=== PATIENT | male | born 1965 | race Caucasian/White ===

== ENCOUNTER 2017-06-09 20:49 | Emergency (ER) | payer OTHER ==
--- NOTE | 2017-06-09 20:58 | EDPHY ---
H & P Stated Complaint: started 0400 yesterday left flank that radiated to LLQ Time Seen by Provider: 06/09/17 20:56 HPI/ROS: CHIEF COMPLAINT: Left abdominal pain HISTORY OF PRESENT ILLNESS: 51-year-old male with prior history of nephrolithiasis, last episode 2 years ago, spontaneous passage, complaining of left lower quadrant pain since noon today. Feels different than prior episodes nephrolithiasis. No testicular pain. He was seen at his PCP 2 days ago for complaints of dark urine in diagnosed with cystitis at that time, currently on antibiotic PRIMARY CARE PROVIDER:Dr. Yousuf Dhaliwal REVIEW OF SYSTEMS: A ten point review of systems was performed and is negative with the exception of the items mentioned in the HPI PAST MEDICAL & SURGICAL HISTORY: prior nephrolithiasis history of spontaneous passage SOCIAL HISTORY:Nonsmoker PHYSICAL EXAM (Prior to examination, patient consented to physical exam, hands were washed and my usual and customary physical exam procedures followed) 1) GENERAL: Well-developed, well-nourished, alert and oriented. Appears to be in no acute distress. 2) HEAD: Normocephalic, atraumatic 3) HEENT: Pupils equal, round, reactive to light bilaterally. Sclera anicteric. Nasopharynx, oropharynx, clear, no lesions. Ears bilaterally with normal tympanic membranes. 4) NECK: Full range of motion, no meningeal signs. 5) LUNGS: Clear auscultation bilaterally, no wheezes, no rhonchi, no retractions. 6) HEART: Regular rate and rhythm, no murmur, no heave, no gallop. 7) ABDOMEN: No guarding, no rebound, no focal tenderness, negative McBurney's, negative Rangel's, negative Rovsing's, negative peritoneal sign, 8) MUSCULOSKELETAL: Moving all extremities, no focal areas of tenderness, no obvious trauma. No peripheral edema or discoloration. 9) BACK: No CVA tenderness, no midline vertebral tenderness, no fluctuance, no step-off, no obvious trauma, no visual or palpable abnormality. 10) SKIN: No rash, no petechiae. 11) Psychiatric: Patient is oriented X 3, there is no agitation. DIFFERENTIAL DIAGNOSIS: In no particular order including but limited to nephrolithiasis, pyelonephritis, obstructive uropathy, diverticulitis, diverticular abscess. - Personal History Current Tetanus/Diphtheria Vaccine: Yes Current Tetanus Diphtheria and Acellular Pertussis (TDAP): Yes - Medical/Surgical History Hx Asthma: No Hx Chronic Respiratory Disease: No Hx Diabetes: No Hx Cardiac Disease: No Hx Renal Disease: No Hx Cirrhosis: No Hx Alcoholism: No Hx HIV/AIDS: No Hx Splenectomy or Spleen Trauma: No Other PMH: right knee surgery, hernia repair, wisdom teeth, vasectomy - Social History Smoking Status: Never smoked Constitutional: Initial Vital Signs Temperature (C) 36.8 C 06/09/17 20:50 Heart Rate 87 06/09/17 20:50 Respiratory Rate 18 06/09/17 20:50 Blood Pressure 133/79 H 06/09/17 20:50 O2 Sat (%) 96 06/09/17 20:50 O2 Delivery Mode Room Air Allergies/Adverse Reactions: No Known Allergies Allergy (Verified 06/09/17 20:56) Home Medications: Medication Instructions Recorded Bactrim DS 06/09/17 Hydrocodone/APAP 5/325 [[place] 1 tab PO Q6 PRN #15 tab 06/09/17 5/325 (RX)] Hydrocodone/Acetaminophen 06/09/17 Ondansetron 06/09/17 Tamsulosin HCl 06/09/17 Tamsulosin HCl [Flomax] 0.4 mg PO DAILY #7 cap 06/09/17 Medical Decision Making - Diagnostics Imaging Results: Imaging Impressions Abdomen/Pelvis CT 06/09/17 21:05 Impression: 1. Moderate obstructive uropathy with extensive perinephric and periureteric stranding suggesting forniceal rupture secondary to a 4 mm stone at the ureterovesical junction. 2. Bilateral nephrolithiasis. 3. Probable tiny bladder stones. 4. Additional findings, as above. Findings discussed with Crow Martino PA-C on June 09, 2017 at 2140 hours. Attention: This CT examination is specifically designed to evaluate patients who are clinically suspected of having acute obstructive uropathy. This examination does not use radiographic contrast, and as such, provides only a limited evaluation of the abdomen, pelvis, and retroperitoneum. If there is further clinical suspicion for pathological conditions other than obstructive uropathy, a complete CT evaluation of the abdomen and pelvis utilizing intravenous and oral contrast should be considered. Images reviewed myself ED Course/Re-evaluation: 9:05 p.m.: Patient has prior history of nephrolithiasis however describes a current pain which is different than his usual pain. In addition he is focally tender to palpation left lower quadrant. Discussed multiple possible etiologies including, but not limited to, diverticulitis, diverticular abscess, nephrolithiasis. I therefore recommended CT imaging. Indications risks benefits discussed with patient and he verbalizes consent. 10:15 p.m.: Re-evaluation. His pain is currently controlled after 1 mg of Dilaudid. He did not receive Toradol in the ER. Had not received urinalysis from the patient yet. Will provide further IV hydration. He is noted to have 4 mm stone at the UVJ with creatinine of 2.2 which is new compared to level 1.1 December of 2016. Plan will be consultation with Urology after urinalysis. He does informed me that 2 days ago he was diagnosed with cystitis by his PCP and started on Bactrim. 11:40 p.m.: Patient was able to provide urinalysis which is positive for hematuria only. Will plan on consultation with Urology. His pain is controlled. 11:55 p.m.: Consultation with on-call Urology, TANVIR Kent, discussed clinical findings including the elevated creatinine. Recommended follow up in office this week (today is Saturday). Discussed this with the patient and he is comfortable with this plan. His pain is controlled. All questions and concerns addressed by myself. - Data Points Laboratory Results: Laboratory Results 06/09/17 21:12 06/09/17 21:12 06/09/17 06/09/17 06/09/17 21:12 21:12 20:45 WBC 14.76 10^3/uL H 10^3/uL (3.80-9.50) RBC 5.16 10^6/uL 10^6/uL (4.40-6.38) Hgb 15.7 g/dL g/dL (13.7-17.5) Hct 45.4 % % (40.0-51.0) MCV 88.0 fL fL (81.5-99.8) MCH 30.4 pg pg (27.9-34.1) MCHC 34.6 g/dL g/dL (32.4-36.7) RDW 12.9 % % (11.5-15.2) Plt Count 389 10^3/uL 10^3/uL (150-400) MPV 8.7 fL fL (8.7-11.7) Neut % (Auto) 86.3 % H % (39.3-74.2) Lymph % (Auto) 7.2 % L % (15.0-45.0) [place] % (Auto) 5.8 % % (4.5-13.0) Eos % (Auto) 0.1 % L % (0.6-7.6) Baso % (Auto) 0.1 % L % (0.3-1.7) Nucleat RBC Rel Count 0.0 % % (0.0-0.2) Absolute Neuts (auto) 12.73 10^3/uL H 10^3/uL (1.70-6.50) Absolute Lymphs (auto) 1.07 10^3/uL 10^3/uL (1.00-3.00) Absolute Monos (auto) 0.86 10^3/uL H 10^3/uL (0.30-0.80) Absolute Eos (auto) 0.01 10^3/uL L 10^3/uL (0.03-0.40) Absolute Basos (auto) 0.02 10^3/uL 10^3/uL (0.02-0.10) Absolute Nucleated RBC 0.00 10^3/uL 10^3/uL (0-0.01) Immature Gran % 0.5 % % (0.0-1.1) Immature Gran # 0.07 10^3/uL 10^3/uL (0.00-0.10) Sodium 136 mEq/L mEq/L (135-145) Potassium 4.8 mEq/L mEq/L (3.5-5.2) Chloride 96 mEq/L L mEq/L (97-110) Carbon Dioxide 26 mEq/l mEq/l (22-31) Anion Gap 14 mEq/L mEq/L (8-16) BUN 21 mg/dL mg/dL (7-23) Creatinine 2.2 mg/dL H mg/dL (0.7-1.3) Estimated GFR 31 Glucose 114 mg/dL H mg/dL (70-100) Calcium 9.3 mg/dL mg/dL (8.5-10.4) Total Bilirubin 1.3 mg/dL mg/dL (0.1-1.4) Conjugated Bilirubin 0.3 mg/dL mg/dL (0.0-0.5) Unconjugated Bilirubin 1.0 mg/dL mg/dL (0.0-1.1) AST 29 IU/L IU/L (17-59) ALT 28 IU/L IU/L (21-72) Alkaline Phosphatase 63 IU/L IU/L (38-126) Total Protein 7.9 g/dL g/dL (6.3-8.2) Albumin 4.5 g/dL g/dL (3.5-5.0) Lipase 27 IU/L IU/L (23-300) Urine Color YELLOW Urine Appearance HAZY Urine pH 5.0 (5.0-7.5) Ur Specific [place] 1.028 (1.002-1.030) Urine Protein NEGATIVE (NEGATIVE) Urine Ketones TRACE H (NEGATIVE) Urine Blood 1+ H (NEGATIVE) Urine Nitrate NEGATIVE (NEGATIVE) Urine Bilirubin NEGATIVE (NEGATIVE) Urine Urobilinogen NEGATIVE EU EU (0.2-1.0) Ur Leukocyte Esterase NEGATIVE (NEGATIVE) Urine RBC 1-3 /hpf /hpf (0-3) Urine WBC 1-3 /hpf /hpf (0-3) Ur Epithelial Cells TRACE /lpf /lpf (NONE-1+) Uric Acid Crystals PRESENT /hpf /hpf (NONE-1+) Urine Mucus TRACE /lpf /lpf (NONE-1+) Urine Glucose NEGATIVE (NEGATIVE) Medications Given: Discontinued Medications Hydromorphone HCl (Dilaudid) 1 mg IVP EDNOW ONE Stop: 06/09/17 21:26 Last Admin: 06/09/17 21:28 Dose: 1 mg Hydromorphone HCl (Dilaudid) 1 mg IVP EDNOW ONE Stop: 06/09/17 23:29 Last Admin: 06/09/17 23:32 Dose: 1 mg Sodium Chloride (Ns) 1,000 mls @ 0 mls/hr IV ONCE ONE PRN Reason: Wide Open Stop: 06/09/17 21:16 Last Admin: 06/09/17 21:28 Dose: 1,000 mls Sodium Chloride (Ns) 1,000 mls @ 0 mls/hr IV ONCE ONE PRN Reason: Wide Open Stop: 06/09/17 22:15 Last Admin: 06/09/17 22:22 Dose: 1,000 mls Ondansetron HCl (Zofran) 4 mg IVP EDNOW ONE Stop: 06/09/17 21:26 Last Admin: 06/09/17 21:28 Dose: 4 mg Tamsulosin HCl (Flomax) 0.4 mg PO EDNOW ONE Stop: 06/09/17 21:55 Last Admin: 06/09/17 21:55 Dose: 0.4 mg Departure - Departure Disposition: Home, Routine, Self-Care Clinical Impression: Ureterolithiasis, Elevated serum creatinine Condition: Good Instructions: Kidney Stones (ED), Hydrocodone/Acetaminophen (By mouth) Additional Instructions: Return to the ER if you develop new or worsening symptoms or uncontrolled pain, if you develop fevers or chills Referrals: Alfonso Alvarenga MD [Medical Doctor] - 1-2 days without fail Prescriptions: Hydrocodone/APAP 5/325 [[place] 5/325 (RX)] 1 tab PO Q6 PRN #15 tab PRN Reason: Pain, Severe Tamsulosin HCl [Flomax] 0.4 mg PO DAILY #7 cap
[2017-06-09] MEDS ORDERED: NS 1,000 ML IV ONE ×2 (21:15→22:14)
[2017-06-09 21:25] LABS: PLATELET COUNT 389 10^3/uL (150-400)
[2017-06-09] MEDS ORDERED: ONDANSETRON 4 MG/2 ML VIAL IVP ONE (21:25)
[2017-06-09] MEDS ORDERED: HYDROmorphONE/DILAUDID 1 MG/ML INJ IVP ONE ×2 (21:25→23:28)
[2017-06-09] MEDS ORDERED: HYDROmorphONE/DILAUDID 2 MG/ML INJ ONE ×2 (21:27→23:31)
[2017-06-09] MEDS ORDERED: TAMSULOSIN HCL 0.4 MG CAP PO ONE ×2 (21:54)
[2017-06-09] MEDS ORDERED: HYDROmorphONE/DILAUDID 1 MG/ML INJ IM ONE (23:52)
[2017-06-10] MEDS ORDERED: HYDROCOD/APAP 5/325 PREPACK#6 BTL TAKEHOME ONE (00:01)
[2017-06-10 00:20] VITALS: RESP 16; TEMP 98.4
[2017-06-10 00:21] VITALS: BP 135/88; PULSE 85; O2SAT 94
== END 2017-06-10 00:22 | disposition home or self-care (01) ==
DX: N20.1 Calculus of ureter (principal); R79.89 Other specified abnormal findings of blood chemistry
CPT/HCPCS: 96374; J1170; J2405